=== PATIENT | female | born 1950 | race Hispanic/Latino ===

== ENCOUNTER 2018-10-27 09:47 | Inpatient (IN) | payer OTHER ==
--- NOTE | 2018-10-27 10:13 | Emergency Department Report ---
Stated Complaint: PALPATATION Time Seen by Provider: 10/27/18 10:11 - HPI History of Present Illness: PMH SVT HTN HPLD DM NO SD NO CVA NO CIG FOLLOWED BY [facility] FAST HR SINCE YESTERDAY NO CP NO SOB MILD SWELLING LEGS TAKING [facility] CALLED [facility] AND THEY SENT HER HERE TO MAIN ED MSE screening note: Focused history and physical exam performed. Due to findings the following was ordered: ED Disposition for MSE Condition: Stable
[2018-10-27 10:35] LABS: Basophils # (Auto) 0.1 K/mm3 (0.0-0.1); Basophils % (Auto) 1.1 % (0.0-1.8); Eosinophils # (Auto) 0.2 K/mm3 (0.0-0.4); Eosinophils % (Auto) 1.6 % (0.0-4.3); Hematocrit 41.6 % (30.3-42.9); Lymphocytes # (Auto) 2.4 K/mm3 (1.2-5.4); Mean Corpuscular HGB Conc 34 % (30-34); Mean Corpuscular Volume 82 fl (79-97); Monocytes # (Auto) 0.9 K/mm3 (0.0-0.8); Platelet Count 378 K/mm3 (140-440); Red Blood Count 5.07 M/mm3 (3.65-5.03); Red Cell Distribution Width 14.2 % (13.2-15.2)
[2018-10-27] MEDS ORDERED: CARDIZEM IV ONE (10:41)
[2018-10-27] MEDS ORDERED: NACL 0.9% 1000 ML 1,000 ML IV ONE (10:42)
--- NOTE | 2018-10-27 10:43 | Emergency Department Report ---
HPI - General Chief Complaint: Arrhythmia/Palpitations Time Seen by Provider: 10/27/18 10:11 - HPI HPI: Room 18 The patient is a 68-year-old female presenting with chief complaint of tachycardia. The patient states yesterday her fitbit registered an elevated heart rate that she thought was malfunctioning. Today when she checked her blood pressure heart rate again was noted to be elevated at 149. Patient states to much hot flash and felt clammy for approximately 15 minutes the symptoms resolved. Patient denied ever having chest pain shortness breath nausea or vomiting. Patient now is asymptomatic despite a persistently elevated heart rate. The patient states in June 2018 she had her first episode of palpitations when she was found to be in atrial flutter requiring cardioversion Location: Cardiovascular system Duration: [See above] Quality: Palpitations Severity: Moderate Modifying factors: [see above] Context: [see above] Mode of transportation: [not driving] ED Past Medical Hx - Past Medical History Hx Hypertension: Yes Hx Diabetes: Yes Additional medical history: Atrial flutter status post cardioversion June 2018 - Surgical History Past Surgical History?: No Additional Surgical History: Removal of cyst in December or January 2018;Hysterectomy 1983; Facial reconstructive surgery in 1968; - Family History Family history: no significant - Social History Smoking Status: Former Smoker (nodes) Substance Use Type: None - Medications Home Medications: Home Medications Medication Instructions Recorded Confirmed Last Taken Type Amiodarone [Cordarone 200 MG TAB] 200 mg PO QDAY #30 tablet 07/13/18 Unknown Rx Amlodipine Besylate [Norvasc] 5 mg PO QDAY #30 tablet 07/13/18 Unknown Rx Apixaban [Eliquis] 5 mg PO Q12HR #60 tablet 07/13/18 Unknown Rx Fluticasone [Flonase] 1 spray NS QDAY #1 bottle 07/13/18 Unknown Rx Loratadine [Claritin] 5 mg PO QDAY tablet 07/13/18 Unknown Rx Losartan [Cozaar] 50 mg PO QDAY #30 tablet 07/13/18 Unknown Rx Pravastatin [Pravachol] 20 mg PO QHS #30 tablet 07/13/18 Unknown Rx dilTIAZem CD [Cardizem CD] 180 mg PO QDAY capsule 07/13/18 Unknown Rx hydroCHLOROthiazide [HCTZ] 12.5 mg PO QDAY #30 capsule 07/13/18 Unknown Rx metFORMIN [Glucophage] 500 mg PO QAM #60 tablet 07/13/18 Unknown Rx metFORMIN [Glucophage] 500 mg PO QDDIAB tablet 07/13/18 Unknown Rx ED Review of Systems ROS: Stated complaint: PALPATATION Other details as noted in HPI Physical Exam - Physical Exam Vital Signs: Vital Signs 10/27/18 10:10 Temperature 97.8 F Pulse Rate 146 H Respiratory 16 Rate Blood Pressure 124/71 O2 Sat by Pulse 95 Oximetry ED Course Vital Signs 10/27/18 10:10 Temperature 97.8 F Pulse Rate 146 H Respiratory 16 Rate Blood Pressure 124/71 O2 Sat by Pulse 95 Oximetry - Consultations Consultation #1: 10/27/18 10:45 Cardiology paged 10/27/18 11:[address] Soler- requests amiodarone be initiated. Aware of current medications being administered ED Medical Decision Making - Lab Data Result diagrams: 10/27/18 10:20 10/27/18 10:20 Laboratory Tests 10/27/18 10/27/18 10/27/18 10:20 10:20 10:20 WBC 9.6 RBC 5.07 H Hgb 14.0 Hct 41.6 MCV 82 MCH 28 MCHC 34 RDW 14.2 Plt Count 378 Lymph % (Auto) 25.0 [facility] % (Auto) 9.0 H Eos % (Auto) 1.6 Baso % (Auto) 1.1 Lymph # 2.4 [facility] # 0.9 H Eos # 0.2 Baso # 0.1 Seg Neutrophils % 63.3 Seg Neutrophils # 6.1 PT 14.6 INR 1.07 APTT 36.3 Sodium 141 Potassium 4.0 Chloride 103.6 Carbon Dioxide 27 Anion Gap 14 BUN 9 Creatinine 0.6 L Estimated GFR > 60 BUN/Creatinine Ratio 15 Glucose 151 H Calcium 9.0 Magnesium Total Bilirubin 0.30 AST 17 ALT 29 Alkaline Phosphatase 96 Troponin T < 0.010 Total Protein 7.2 Albumin 4.3 Albumin/Globulin Ratio 1.5 TSH Free T4 10/27/18 10/27/18 10:37 10:37 WBC RBC Hgb Hct MCV MCH MCHC RDW Plt Count Lymph % (Auto) [facility] % (Auto) Eos % (Auto) Baso % (Auto) Lymph # [facility] # Eos # Baso # Seg Neutrophils % Seg Neutrophils # PT INR APTT Sodium Potassium Chloride Carbon Dioxide Anion Gap BUN Creatinine Estimated GFR BUN/Creatinine Ratio Glucose Calcium Magnesium 2.20 Total Bilirubin AST ALT Alkaline Phosphatase Troponin T Total Protein Albumin Albumin/Globulin Ratio TSH 2.510 Free T4 1.18 - EKG Data -: EKG Interpreted by Me Rate: tachycardia - EKG Data Interpretation: unchanged when compared t - Radiology Data Radiology results: image reviewed (chest x-ray) interpreted by me: Chest x-ray-no focal infiltrate, no pneumothorax - Differential Diagnosis atria flutter Critical care attestation.: If time is entered above; I have spent that time in minutes in the direct care of this critically ill patient, excluding procedure time. ED Disposition Clinical Impression: Atrial flutter Disposition: [id number] OP ADMIT IP TO THIS HOSP Is pt being admited?: Yes Does the pt Need Aspirin: Yes Condition: Fair Time of Disposition: 11:14 (hospitalist paged (Dr Rodriguez))
[2018-10-27 10:46] LABS: INR 1.07 (0.87-1.13)
[2018-10-27 10:47] LABS: Partial Thromboplastin Time 36.3 Sec. (24.2-36.6)
[2018-10-27 10:57] LABS: Alanine Aminotransferase 29 units/L (7-56); Albumin 4.3 g/dL (3.9-5); BUN/Creatinine Ratio 15; Blood Urea Nitrogen 9 mg/dL (7-17); Hemolysis Index 11
[2018-10-27] MEDS ORDERED: CARDIZEM 100 MG in D5W 80 ML IV SCH (11:00)
[2018-10-27] MEDS ORDERED: CORDARONE 150 MG in D5W 97 ML IV ONE (11:12)
--- NOTE | 2018-10-27 11:12 | XRay Report ---
PORTABLE CHEST INDICATION: Dysrhythmia. COMPARISON: 07/11/2018 FINDINGS: Portable, frontal chest radiograph demonstrated stable cardiomediastinal silhouette with slightly prominent hilar/infrahilar markings, more so on the right. No pleural effusions or CHF. Right hemidiaphragm approximately 2 cm higher than the left. Mild aortic knob calcifications. EKG leads. Intact bones. CONCLUSION: No acute chest process or significant interval change, as described. Thank you for the opportunity to participate in this patient's care.
[2018-10-27 11:14] LABS: Free T4 (Free Thyroxine) 1.18 ng/dL (0.76-1.46)
[2018-10-27] MEDS ORDERED: ZOFRAN IV PRN (11:25)
[2018-10-27] MEDS ORDERED: PROVENTIL IH PRN (11:25)
[2018-10-27] MEDS ORDERED: SODIUM CHLORIDE FLUSH SYRINGE 10 ML IV PRN (11:25)
--- NOTE | 2018-10-27 11:27 | History and Physical Report ---
History of Present Illness Chief complaint: My heart is beating fast History of present illness: 68 YO Female with HTN, DM, Obesity, Atrial Flutter/Fib S/P Cardioversion 07/11 presents to ED for evaluation. Pt states that she has experienced chest palpitations and feeling like her heart was racing over the past 2 days with persistent symptoms over the same time frame. Pt also reports feeling diaphoretic for 15 minutes today which prompted visit to ED. Pt transported to [facility] ED via private vehicle. Pt seen and evaluated in ED and found to have persistent Atrial Fib/Flutter. Cardiology consulted in ED. Pt denies fever, chills, CP, NVD, Trauma, BRBPR, Unintentional weight loss, night sweats, productive cough, prolonged travel/immobility, individual/family history of DVT/PE/Blood Clotting Disorders. Pt admitted to telemetry. Prior visit on 07/11/18 reviewed. All listed medication reconciled at time of admission. Past History Past Medical History: atrial fib, diabetes, hypertension Past Surgical History: hysterectomy, Other (Facial surgery) Social history: single. denies: smoking, alcohol abuse, prescription drug abuse Family history: hypertension Medications and Allergies Allergies Allergy/AdvReac Type Severity Reaction Status Date / Time Penicillins AdvReac Hives Verified 10/27/18 10:45 Home Medications Medication Instructions Recorded Confirmed Last Taken Type Apixaban [Eliquis] 5 mg PO Q12HR #60 tablet 07/13/18 10/27/18 Unknown Rx Loratadine [Claritin] 5 mg PO QDAY tablet 07/13/18 10/27/18 Unknown Rx Losartan [Cozaar] 50 mg PO QDAY #30 tablet 07/13/18 10/27/18 Unknown Rx Pravastatin [Pravachol] 20 mg PO QHS #30 tablet 07/13/18 10/27/18 Unknown Rx dilTIAZem CD [Cardizem CD] 180 mg PO QDAY capsule 07/13/18 10/27/18 Unknown Rx hydroCHLOROthiazide [HCTZ] 12.5 mg PO QDAY #30 capsule 07/13/18 10/27/18 Unknown Rx metFORMIN [Glucophage] 500 mg PO QDDIAB tablet 07/13/18 10/27/18 Unknown Rx Active Meds: Active Medications Acetaminophen (Tylenol) 650 mg PO Q4H PRN PRN Reason: Pain MILD(1-3)/Fever >100.5/VELEZ Albuterol (Proventil) 2.5 mg IH Q3HRT PRN PRN Reason: Shortness Of Breath Diltiazem HCl 100 mg/ Dextrose 100 mls @ 5 mls/hr IV DIRECT PIPPA; Protocol Sodium Chloride (Nacl 0.9% 1000 Ml) 1,000 mls @ 999 mls/hr IV ONCE ONE Stop: 10/27/18 11:42 Last Admin: 10/27/18 10:59 Dose: 999 mls/hr Documented by: Amiodarone HCl 900 mg/ (Dextrose) 500 mls @ 33.333 mls/hr IV DIRECT PIPPA; Protocol Ondansetron HCl (Zofran) 4 mg IV Q8H PRN PRN Reason: Nausea And Vomiting Sodium Chloride (Sodium Chloride Flush Syringe 10 Ml) 10 ml IV BID PIPPA Sodium Chloride (Sodium Chloride Flush Syringe 10 Ml) 10 ml IV PRN PRN PRN Reason: LINE FLUSH Review of Systems Constitutional: no weight loss, no weight gain, no fever, no chills Ears, nose, mouth and throat: no ear pain, no ear discharge, no tinnitis, no decreased hearing, no nose pain Breasts: no change in shape, no swelling, no mass Cardiovascular: palpitations, no syncope, no lightheadedness, no paroxysmal nocturnal dyspnea, no decreased exercise tolerance Respiratory: no cough, no cough with sputum, no excessive sputum, no hemoptysis Gastrointestinal: no abdominal pain, no nausea, no vomiting, no diarrhea, no co nstipation Genitourinary Female: no pelvic pain, no flank pain, no menorrhagia, no dysuria, no urinary frequency, no urgency Rectal: no pain, no incontinence, no bleeding Musculoskeletal: no neck stiffness, no neck pain, no shooting arm pain, no arm numbness/tingling, no low back pain, no shooting leg pain Integumentary: no rash, no pruritis, no redness, no sores, no wounds Neurological: no weakness, no parathesias, no numbness, no tingling, no syncope Psychiatric: no anxiety, no memory loss, no change in sleep habits, no sleep disturbances, no insomnia, no hypersomnia Endocrine: no cold intolerance, no heat intolerance, no polyphagia, no excessive thirst, no polydipsia Hematologic/Lymphatic: no easy bruising, no easy bleeding, no lymphadenopathy Allergic/Immunologic: no urticaria, no allergic rhinitis, no wheezing, no persistent infections Exam - Constitutional Vitals: Temp Pulse Resp BP Pulse Ox 98.2 F 147 H 16 130/68 96 10/27/18 10:42 10/27/18 10:58 10/27/18 10:43 10/27/18 10:58 10/27/18 10:43 General appearance: Present: mild distress - EENT Eyes: Present: PERRL ENT: hearing intact, clear oral mucosa - Neck Neck: Present: supple, normal ROM - Respiratory Respiratory effort: normal Respiratory: bilateral: CTA - Cardiovascular Rhythm: irregularly irregular Heart Sounds: Present: S1 & S2. Absent: rub, click - Extremities Extremities: pulses symmetrical, No edema Peripheral Pulses: within normal limits - Abdominal General gastrointestinal: Present: soft, non-tender, non-distended, normal bowel sounds Female genitourinary: Present: normal - Integumentary Integumentary: Present: clear, warm, dry - Musculoskeletal Musculoskeletal: gait normal, strength equal bilaterally - Psychiatric Psychiatric: appropriate mood/affect, intact judgment & insight - Neurologic Neurologic: CNII-XII intact, moves all extremities Results - Labs CBC & Chem 7: 10/27/18 10:20 10/27/18 10:20 Labs: Abnormal lab results 10/27/18 10/27/18 Range/Units 10:20 10:20 RBC 5.07 H (3.65-5.03) M/mm3 [facility] % (Auto) 9.0 H (0.0-7.3) % [facility] # 0.9 H (0.0-0.8) K/mm3 Creatinine 0.6 L (0.7-1.2) mg/dL Glucose 151 H (65-100) mg/dL Assessment and Plan - Patient Problems (1) Atrial flutter Current Visit: Yes Status: Acute Qualifiers: Qualified Code(s): I48.92 - Unspecified atrial flutter Plan to address problem: Cardiology consulted in ED, Amiodarone drip for medical cardioversion and rate control, admit to telemetry, continue therapeutic anticoagulation with eliquis, (2) Diabetes Current Visit: Yes Status: Acute Plan to address problem: ADA diet, insulin, accu check (3) HLD (hyperlipidemia) Current Visit: No Status: Chronic Qualifiers: Hyperlipidemia type: mixed hyperlipidemia Qualified Code(s): E78.2 - Mixed hyperlipidemia Plan to address problem: low cholesterol diet, statin therapy as indicated. (4) HTN (hypertension) Current Visit: No Status: Chronic Qualifiers: Hypertension type: essential hypertension Qualified Code(s): I10 - Essential (primary) hypertension Plan to address problem: monitor bp q shift, supportive care, (5) Obesity hypoventilation syndrome Current Visit: Yes Status: Acute Plan to address problem: supplemental oxygen, nebulizer therapy, NIPPV as clinically indicated, balanced diet/increased physical activity at discharge. (6) DVT prophylaxis Current Visit: No Status: Acute Plan to address problem: SCD to BLE while in bed.
[2018-10-27] MEDS ORDERED: D50W (25GM) Syringe IV PRN (11:32)
[2018-10-27] MEDS: CORDARONE 900 MG in D5W 482 ML IV SCH ×2 (12:20→19:06)
[2018-10-27 14:38] LABS: Bacteria,Urine 1+ /HPF (Negative); Bilirubin,Urine NEG (Negative); Blood,Urine NEG (Negative); Color,Urine Colorless (Yellow); Protein,Urine <15 mg/dL mg/dL (Negative); Urobilinogen,Urine < 2.0 mg/dL (<2.0)
[2018-10-27] MEDS ORDERED: LOPRESSOR IV PRN (17:05)
--- NOTE | 2018-10-27 17:14 | Consultation ---
History of Present Illness Consult date: 10/27/18 Consult reason: atrial fibrillation History of present illness: 68-year-old woman with a history of hypertension and paroxysmal atrial flutter. 3 months ago, she was hospitalized for symptomatic atrial flutter, ultimately required JHOAN guided cardioversion. Yesterday, she noted a recurrence of palpitations and some dizziness, presented to the emergency room where she was again found with atrial flutter with 2:1 AV conduction, heart rate in the 130s. The only possible provoking event was her indigestion of 2 cups of coffee. She is admitted for further management of symptomatic atrial flutter. Blood pressure is stable. It'll be recalled that on the prior presentation left ventricular ejection fraction within normal limits of normal, 45-50%. Past History Past Medical History: atrial fib, diabetes, hypertension Past Surgical History: hysterectomy, Other (Facial surgery) Social history: single. denies: smoking, alcohol abuse, prescription drug abuse Family history: hypertension Medications and Allergies Allergies Allergy/AdvReac Type Severity Reaction Status Date / Time Penicillins AdvReac Hives Verified 10/27/18 10:45 Home Medications Medication Instructions Recorded Confirmed Last Taken Type Apixaban [Eliquis] 5 mg PO Q12HR #60 tablet 07/13/18 10/27/18 Unknown Rx Loratadine [Claritin] 5 mg PO QDAY tablet 07/13/18 10/27/18 Unknown Rx Losartan [Cozaar] 50 mg PO QDAY #30 tablet 07/13/18 10/27/18 Unknown Rx Pravastatin [Pravachol] 20 mg PO QHS #30 tablet 07/13/18 10/27/18 Unknown Rx dilTIAZem CD [Cardizem CD] 180 mg PO QDAY capsule 07/13/18 10/27/18 Unknown Rx hydroCHLOROthiazide [HCTZ] 12.5 mg PO QDAY #30 capsule 07/13/18 10/27/18 Unknown Rx metFORMIN [Glucophage] 500 mg PO QDDIAB tablet 07/13/18 10/27/18 Unknown Rx Active Meds: Active Medications Acetaminophen (Tylenol) 650 mg PO Q4H PRN PRN Reason: Pain MILD(1-3)/Fever >100.5/VELEZ Albuterol (Proventil) 2.5 mg IH Q3HRT PRN PRN Reason: Shortness Of Breath Amiodarone HCl (Cordarone) 200 mg PO BID PIPPA Apixaban (Eliquis) 5 mg PO Q12HR PIPPA; Protocol Dextrose (D50w (25gm) Syringe) 50 ml IV PRN PRN PRN Reason: Hypoglycemia Digoxin (Lanoxin) 0.25 mg IV Q6HR [facility] Stop: 10/28/18 00:01 Digoxin (Lanoxin) 0.25 mg PO DAILY@1700 PIPPA Diltiazem HCl (Cardizem) 60 mg PO Q6HR [facility] Fluticasone Propionate (Flonase) 50 mcg NS QDAY [facility] Hydrochlorothiazide (Hctz) 12.5 mg PO QDAY [facility] Amiodarone HCl 900 mg/ (Dextrose) 500 mls @ 33.333 mls/hr IV DIRECT PIPPA; Protocol Last Admin: 10/27/18 12:20 Dose: 1 mg/min, 33.333 mls/hr Documented by: Loratadine (Claritin) 5 mg PO QDAY [facility] Losartan Potassium (Cozaar) 50 mg PO QDAY [facility] Metoprolol Tartrate (Lopressor) 5 mg IV Q6HR PRN PRN Reason: HR>130 Ondansetron HCl (Zofran) 4 mg IV Q8H PRN PRN Reason: Nausea And Vomiting Pravastatin Sodium (Pravachol) 20 mg PO QHS [facility] Sodium Chloride (Sodium Chloride Flush Syringe 10 Ml) 10 ml IV BID [facility] Sodium Chloride (Sodium Chloride Flush Syringe 10 Ml) 10 ml IV PRN PRN PRN Reason: LINE FLUSH Review of Systems Cardiovascular: palpitations, rapid/irregular heart beat, lightheadedness, no chest pain, no orthopnea, no edema, no syncope, no shortness of breath Physical Examination Vital Signs Temp Pulse Resp BP Pulse Ox 97.8 F 146 H 16 124/71 95 10/27/18 10:10 10/27/18 10:10 10/27/18 10:10 10/27/18 10:10 10/27/18 10:10 General appearance: no acute distress HEENT: Positive: PERRL Neck: Positive: neck supple Cardiac: Positive: irregularly irregular Lungs: Positive: clear to auscultation Neuro: Positive: Grossly Intact Abdomen: Positive: Soft Female genitourinary: deferred Skin: Positive: Clear Extremities: Absent: edema Results 10/27/18 10:20 10/27/18 10:20 Cardiac Enzymes 10/27/18 Range/Units 10:20 AST 17 (5-40) units/L Coagulation 10/27/18 Range/Units 10:20 PT 14.6 (12.2-14.9) Sec. INR 1.07 (0.87-1.13) APTT 36.3 (24.2-36.6) Sec. CBC 10/27/18 Range/Units 10:20 WBC 9.6 (4.5-11.0) K/mm3 RBC 5.07 H (3.65-5.03) M/mm3 Hgb 14.0 (10.1-14.3) gm/dl Hct 41.6 (30.3-42.9) % Plt Count 378 (140-440) K/mm3 Lymph # 2.4 (1.2-5.4) K/mm3 [facility] # 0.9 H (0.0-0.8) K/mm3 Eos # 0.2 (0.0-0.4) K/mm3 Baso # 0.1 (0.0-0.1) K/mm3 Comprehensive Metabolic Panel 10/27/18 Range/Units 10:20 Sodium 141 (137-145) mmol/L Potassium 4.0 (3.6-5.0) mmol/L Chloride 103.6 (98-107) mmol/L Carbon Dioxide 27 (22-30) mmol/L BUN 9 (7-17) mg/dL Creatinine 0.6 L (0.7-1.2) mg/dL Glucose 151 H (65-100) mg/dL Calcium 9.0 (8.4-10.2) mg/dL AST 17 (5-40) units/L ALT 29 (7-56) units/L Alkaline Phosphatase 96 (35-129) units/L Total Protein 7.2 (6.3-8.2) g/dL Albumin 4.3 (3.9-5) g/dL EKG interpretations - Telemetry EKG Rhythm: Atrial Fibrillation Assessment and Plan - Patient Problems (1) Atrial flutter Current Visit: Yes Status: Acute Qualifiers: Qualified Code(s): I48.92 - Unspecified atrial flutter Plan to address problem: For recurrent atrial flutter, we will start amiodarone, Cardizem and digoxin. We'll continue oral anticoagulation withEliquis. If she remains in flutter at >48 hours on adequate medical therapy, we will consider another JHOAN guided cardioversion. Long-term, she will be considered a candidate for atrial flutter ablation.
[2018-10-27] MEDS: CARDIZEM PO SCH (18:07)
[2018-10-27] MEDS: LANOXIN IV SCH (18:07)
[2018-10-27] MEDS: PRAVACHOL PO SCH (21:05)
[2018-10-27] MEDS: ELIQUIS PO SCH (21:05)
[2018-10-27] MEDS: SODIUM CHLORIDE FLUSH SYRINGE 10 ML IV SCH (21:05)
[2018-10-27] MEDS: TYLENOL PO PRN (21:10)
[2018-10-27] MEDS ORDERED: LOVENOX SUB-Q SCH (22:00)
[2018-10-28] MEDS: CARDIZEM PO SCH ×4 (00:25→18:50)
[2018-10-28] MEDS: LANOXIN IV SCH (00:30)
[2018-10-28 06:31] LABS: BUN/Creatinine Ratio 13; Blood Urea Nitrogen 8 mg/dL (7-17); Calcium 8.3 mg/dL (8.4-10.2); Hemolysis Index 12
[2018-10-28] MEDS ORDERED: NORVASC PO SCH (10:00)
[2018-10-28] MEDS ORDERED: CARDIZEM CD PO SCH (10:00)
[2018-10-28] MEDS: CLARITIN PO SCH (10:53)
[2018-10-28] MEDS: COZAAR PO SCH (10:53)
[2018-10-28] MEDS: FLONASE NS SCH (10:53)
[2018-10-28] MEDS: ELIQUIS PO SCH ×2 (10:54→21:15)
[2018-10-28] MEDS: HCTZ PO SCH (10:54)
[2018-10-28] MEDS: LANOXIN PO SCH ×2 (10:55→17:54)
[2018-10-28] MEDS: CORDARONE PO SCH ×2 (10:56→21:16)
[2018-10-28] MEDS: SODIUM CHLORIDE FLUSH SYRINGE 10 ML IV SCH ×2 (10:56→21:16)
--- NOTE | 2018-10-28 13:02 | Progress Note ---
Assessment and Plan Assessment and plan: Atrial flutter. Cardiology started the patient on amiodarone, Cardizem and digoxin. Continue oral anticoagulation with Eliquis. The patient does not cardiovert with medical therapy, cardiology to consider JHOAN guided cardioversion. Diabetes mellitus type 2. Continue Accu-Cheks and sliding scale. ADA diet. Hyperlipidemia. Continue statin therapy. Hypertension. Continue antihypertensive medications. OHS/SHANNON. Continue supplemental oxygen and BiPAP as clinically indicated. History Interval history: No new issues overnight. No new episodes of palpitation. Hospitalist Physical - Constitutional Vitals: Temp Pulse Resp BP Pulse Ox 98.5 F 80 18 119/55 94 10/28/18 10:00 10/28/18 10:55 10/28/18 09:59 10/28/18 09:59 10/28/18 09:59 General appearance: Present: no acute distress - EENT Eyes: Present: PERRL, EOM intact ENT: hearing intact, clear oral mucosa, dentition normal - Neck Neck: Present: supple, normal ROM - Respiratory Respiratory effort: normal Respiratory: bilateral: CTA - Cardiovascular Rhythm: regular Heart Sounds: Present: S1 & S2. Absent: gallop, rub - Extremities Extremities: no ischemia, No edema, Full ROM - Abdominal General gastrointestinal: soft, non-tender, non-distended, normal bowel sounds - Integumentary Integumentary: Present: clear, warm, dry - Neurologic Neurologic: CNII-XII intact, moves all extremities Results - Labs CBC & Chem 7: 10/27/18 10:20 10/28/18 05:37 Labs: Laboratory Last Values WBC 9.6 K/mm3 (4.5-11.0) 10/27/18 10:20 RBC 5.07 M/mm3 (3.65-5.03) H 10/27/18 10:20 Hgb 14.0 gm/dl (10.1-14.3) 10/27/18 10:20 Hct 41.6 % (30.3-42.9) 10/27/18 10:20 MCV 82 fl (79-97) 10/27/18 10:20 MCH 28 pg (28-32) 10/27/18 10:20 MCHC 34 % (30-34) 10/27/18 10:20 RDW 14.2 % (13.2-15.2) 10/27/18 10:20 Plt Count 378 K/mm3 (140-440) 10/27/18 10:20 Lymph % (Auto) 25.0 % (13.4-35.0) 10/27/18 10:20 [place] % (Auto) 9.0 % (0.0-7.3) H 10/27/18 10:20 Eos % (Auto) 1.6 % (0.0-4.3) 10/27/18 10:20 Baso % (Auto) 1.1 % (0.0-1.8) 10/27/18 10:20 Lymph # 2.4 K/mm3 (1.2-5.4) 10/27/18 10:20 [place] # 0.9 K/mm3 (0.0-0.8) H 10/27/18 10:20 Eos # 0.2 K/mm3 (0.0-0.4) 10/27/18 10:20 Baso # 0.1 K/mm3 (0.0-0.1) 10/27/18 10:20 Seg Neutrophils % 63.3 % (40.0-70.0) 10/27/18 10:20 Seg Neutrophils # 6.1 K/mm3 (1.8-7.7) 10/27/18 10:20 PT 14.6 Sec. (12.2-14.9) 10/27/18 10:20 INR 1.07 (0.87-1.13) 10/27/18 10:20 APTT 36.3 Sec. (24.2-36.6) 10/27/18 10:20 Sodium 141 mmol/L (137-145) 10/28/18 05:37 Potassium 3.9 mmol/L (3.6-5.0) 10/28/18 05:37 Chloride 104.4 mmol/L (98-107) 10/28/18 05:37 Carbon Dioxide 25 mmol/L (22-30) 10/28/18 05:37 Anion Gap 16 mmol/L 10/28/18 05:37 BUN 8 mg/dL (7-17) 10/28/18 05:37 Creatinine 0.6 mg/dL (0.7-1.2) L 10/28/18 05:37 Estimated GFR > 60 ml/min 10/28/18 05:37 BUN/Creatinine Ratio 13 % 10/28/18 05:37 Glucose 159 mg/dL (65-100) H 10/28/18 05:37 POC Glucose 115 (70-105) H 10/28/18 11:51 Calcium 8.3 mg/dL (8.4-10.2) L 10/28/18 05:37 Magnesium 2.20 mg/dL (1.7-2.3) 10/27/18 10:37 Total Bilirubin 0.30 mg/dL (0.1-1.2) 10/27/18 10:20 AST 17 units/L (5-40) 10/27/18 10:20 ALT 29 units/L (7-56) 10/27/18 10:20 Alkaline Phosphatase 96 units/L (35-129) 10/27/18 10:20 Troponin T < 0.010 ng/mL (0.00-0.029) 10/27/18 13:17 NT-Pro-B Natriuret Pep 3777 pg/mL (0-900) H 10/27/18 10:37 Total Protein 7.2 g/dL (6.3-8.2) 10/27/18 10:20 Albumin 4.3 g/dL (3.9-5) 10/27/18 10:20 Albumin/Globulin Ratio 1.5 % 10/27/18 10:20 TSH 2.510 mlU/mL (0.270-4.200) 10/27/18 10:37 Free T4 1.18 ng/dL (0.76-1.46) 10/27/18 10:37 Urine Color Colorless (Yellow) 10/27/18 13:58 Urine Turbidity Clear (Clear) 10/27/18 13:58 Urine pH 7.0 (5.0-7.0) 10/27/18 13:58 Ur Specific [place] 1.003 (1.003-1.030) 10/27/18 13:58 Urine Protein <15 mg/dl mg/dL (Negative) 10/27/18 13:58 Urine Glucose (UA) Neg mg/dL (Negative) 10/27/18 13:58 Urine Ketones Neg mg/dL (Negative) 10/27/18 13:58 Urine Blood Neg (Negative) 10/27/18 13:58 Urine Nitrite Neg (Negative) 10/27/18 13:58 Urine Bilirubin Neg (Negative) 10/27/18 13:58 Urine Urobilinogen < 2.0 mg/dL (<2.0) 10/27/18 13:58 Ur Leukocyte Esterase Tr (Negative) 10/27/18 13:58 Urine WBC (Auto) 5.0 /HPF (0.0-6.0) 10/27/18 13:58 Urine RBC (Auto) 4.0 /HPF (0.0-6.0) 10/27/18 13:58 U Epithel Cells (Auto) < 1.0 /HPF (0-13.0) 10/27/18 13:58 Urine Bacteria (Auto) 1+ /HPF (Negative) 10/27/18 13:58 Active Medications - Current Medications Current Medications: Generic Name Dose Route Start Last Admin Trade Name Freq PRN Reason Stop Dose Admin Acetaminophen 650 mg 10/27/18 11:25 10/27/18 21:10 Tylenol PO 650 mg Q4H PRN Administration Pain MILD(1-3)/Fever >100.5/VELEZ Albuterol 2.5 mg 10/27/18 11:25 Proventil IH Q3HRT PRN Shortness Of Breath Amiodarone HCl 200 mg 10/28/18 10:00 10/28/18 10:56 Cordarone PO 200 mg BID PIPPA Administration Apixaban 5 mg 10/27/18 22:00 10/28/18 10:54 Eliquis PO 5 mg Q12HR PIPPA Administration Protocol Dextrose 50 ml 10/27/18 11:32 D50w (25gm) Syringe IV PRN PRN Hypoglycemia Digoxin 0.25 mg 10/28/18 10:00 10/28/18 10:55 Lanoxin PO 0.25 mg DAILY@1700 PIPPA Administration Diltiazem HCl 60 mg 10/27/18 18:00 10/28/18 06:27 Cardizem PO 60 mg Q6HR PIPPA Administration Fluticasone Propionate 50 mcg 10/28/18 10:00 Flonase NS QDAY PIPPA Hydrochlorothiazide 12.5 mg 10/28/18 10:00 10/28/18 10:54 Hctz PO 12.5 mg QDAY PIPPA Administration Amiodarone HCl 900 mg/ 500 mls @ 33.333 mls/hr 10/27/18 12:00 10/27/18 19:06 Dextrose IV 0.5 mg/min DIRECT PIPPA 16.667 mls/hr Administration Protocol 1 MG/MIN Loratadine 5 mg 10/28/18 10:00 10/28/18 10:53 Claritin PO 5 mg QDAY PIPPA Administration Losartan Potassium 50 mg 10/28/18 10:00 10/28/18 10:53 Cozaar PO 50 mg QDAY PIPPA Administration Metoprolol Tartrate 5 mg 10/27/18 17:05 Lopressor IV Q6HR PRN HR>130 Ondansetron HCl 4 mg 10/27/18 11:25 Zofran IV Q8H PRN Nausea And Vomiting Pravastatin Sodium 20 mg 10/27/18 22:00 10/27/18 21:05 Pravachol PO 20 mg QHS PIPPA Administration Sodium Chloride 10 ml 10/27/18 22:00 10/28/18 10:56 Sodium Chloride Flush Syringe 10 Ml IV 10 ml BID PIPPA Administration Sodium Chloride 10 ml 10/27/18 11:25 Sodium Chloride Flush Syringe 10 Ml IV PRN PRN LINE FLUSH
[2018-10-28] MEDS: TYLENOL PO PRN (15:51)
[2018-10-28] MEDS: PRAVACHOL PO SCH (21:15)
[2018-10-29] MEDS: CARDIZEM PO SCH ×4 (01:29→18:15)
[2018-10-29] MEDS: COZAAR PO SCH (10:45)
[2018-10-29] MEDS: HCTZ PO SCH (10:45)
[2018-10-29] MEDS: CLARITIN PO SCH (10:46)
[2018-10-29] MEDS: CORDARONE PO SCH ×2 (10:47→22:09)
[2018-10-29] MEDS: ELIQUIS PO SCH ×2 (10:47→22:09)
[2018-10-29] MEDS: FLONASE NS SCH (10:47)
[2018-10-29] MEDS: SODIUM CHLORIDE FLUSH SYRINGE 10 ML IV SCH ×2 (10:48→22:09)
--- NOTE | 2018-10-29 11:44 | Progress Note ---
Assessment and Plan Assessment and plan: Atrial flutter. Cardiology started the patient on amiodarone, Cardizem and digoxin. Continue oral anticoagulation with Eliquis. If, the patient does not cardiovert with medical therapy, cardiology to consider JHOAN guided cardioversion. Diabetes mellitus type 2. Continue Accu-Cheks and sliding scale. ADA diet. Hyperlipidemia. Continue statin therapy. Hypertension. Continue antihypertensive medications. OHS/SHANNON. Continue supplemental oxygen and BiPAP as clinically indicated. History Interval history: No new issues overnight. No new episodes of palpitation. Hospitalist Physical - Constitutional Vitals: Temp Pulse Resp BP Pulse Ox 97.5 F L 76 20 125/56 95 10/29/18 00:09 10/29/18 10:45 10/29/18 00:09 10/29/18 10:45 10/29/18 00:09 General appearance: Present: no acute distress - EENT Eyes: Present: PERRL, EOM intact ENT: hearing intact, clear oral mucosa, dentition normal - Neck Neck: Present: supple, normal ROM - Respiratory Respiratory effort: normal Respiratory: bilateral: CTA - Cardiovascular Rhythm: regular Heart Sounds: Present: S1 & S2. Absent: gallop, rub - Extremities Extremities: no ischemia, No edema, Full ROM - Abdominal General gastrointestinal: soft, non-tender, non-distended, normal bowel sounds - Integumentary Integumentary: Present: clear, warm, dry - Neurologic Neurologic: CNII-XII intact, moves all extremities Results - Labs CBC & Chem 7: 10/27/18 10:20 10/28/18 05:37 Labs: Laboratory Last Values WBC 9.6 K/mm3 (4.5-11.0) 10/27/18 10:20 RBC 5.07 M/mm3 (3.65-5.03) H 10/27/18 10:20 Hgb 14.0 gm/dl (10.1-14.3) 10/27/18 10:20 Hct 41.6 % (30.3-42.9) 10/27/18 10:20 MCV 82 fl (79-97) 10/27/18 10:20 MCH 28 pg (28-32) 10/27/18 10:20 MCHC 34 % (30-34) 10/27/18 10:20 RDW 14.2 % (13.2-15.2) 10/27/18 10:20 Plt Count 378 K/mm3 (140-440) 10/27/18 10:20 Lymph % (Auto) 25.0 % (13.4-35.0) 10/27/18 10:20 [place] % (Auto) 9.0 % (0.0-7.3) H 10/27/18 10:20 Eos % (Auto) 1.6 % (0.0-4.3) 10/27/18 10:20 Baso % (Auto) 1.1 % (0.0-1.8) 10/27/18 10:20 Lymph # 2.4 K/mm3 (1.2-5.4) 10/27/18 10:20 [place] # 0.9 K/mm3 (0.0-0.8) H 10/27/18 10:20 Eos # 0.2 K/mm3 (0.0-0.4) 10/27/18 10:20 Baso # 0.1 K/mm3 (0.0-0.1) 10/27/18 10:20 Seg Neutrophils % 63.3 % (40.0-70.0) 10/27/18 10:20 Seg Neutrophils # 6.1 K/mm3 (1.8-7.7) 10/27/18 10:20 PT 14.6 Sec. (12.2-14.9) 10/27/18 10:20 INR 1.07 (0.87-1.13) 10/27/18 10:20 APTT 36.3 Sec. (24.2-36.6) 10/27/18 10:20 Sodium 141 mmol/L (137-145) 10/28/18 05:37 Potassium 3.9 mmol/L (3.6-5.0) 10/28/18 05:37 Chloride 104.4 mmol/L (98-107) 10/28/18 05:37 Carbon Dioxide 25 mmol/L (22-30) 10/28/18 05:37 Anion Gap 16 mmol/L 10/28/18 05:37 BUN 8 mg/dL (7-17) 10/28/18 05:37 Creatinine 0.6 mg/dL (0.7-1.2) L 10/28/18 05:37 Estimated GFR > 60 ml/min 10/28/18 05:37 BUN/Creatinine Ratio 13 % 10/28/18 05:37 Glucose 159 mg/dL (65-100) H 10/28/18 05:37 POC Glucose 125 (70-105) H 10/29/18 08:32 Calcium 8.3 mg/dL (8.4-10.2) L 10/28/18 05:37 Magnesium 2.20 mg/dL (1.7-2.3) 10/27/18 10:37 Total Bilirubin 0.30 mg/dL (0.1-1.2) 10/27/18 10:20 AST 17 units/L (5-40) 10/27/18 10:20 ALT 29 units/L (7-56) 10/27/18 10:20 Alkaline Phosphatase 96 units/L (35-129) 10/27/18 10:20 Troponin T < 0.010 ng/mL (0.00-0.029) 10/27/18 13:17 NT-Pro-B Natriuret Pep 3777 pg/mL (0-900) H 10/27/18 10:37 Total Protein 7.2 g/dL (6.3-8.2) 10/27/18 10:20 Albumin 4.3 g/dL (3.9-5) 10/27/18 10:20 Albumin/Globulin Ratio 1.5 % 10/27/18 10:20 TSH 2.510 mlU/mL (0.270-4.200) 10/27/18 10:37 Free T4 1.18 ng/dL (0.76-1.46) 10/27/18 10:37 Urine Color Colorless (Yellow) 10/27/18 13:58 Urine Turbidity Clear (Clear) 10/27/18 13:58 Urine pH 7.0 (5.0-7.0) 10/27/18 13:58 Ur Specific [place] 1.003 (1.003-1.030) 10/27/18 13:58 Urine Protein <15 mg/dl mg/dL (Negative) 10/27/18 13:58 Urine Glucose (UA) Neg mg/dL (Negative) 10/27/18 13:58 Urine Ketones Neg mg/dL (Negative) 10/27/18 13:58 Urine Blood Neg (Negative) 10/27/18 13:58 Urine Nitrite Neg (Negative) 10/27/18 13:58 Urine Bilirubin Neg (Negative) 10/27/18 13:58 Urine Urobilinogen < 2.0 mg/dL (<2.0) 10/27/18 13:58 Ur Leukocyte Esterase Tr (Negative) 10/27/18 13:58 Urine WBC (Auto) 5.0 /HPF (0.0-6.0) 10/27/18 13:58 Urine RBC (Auto) 4.0 /HPF (0.0-6.0) 10/27/18 13:58 U Epithel Cells (Auto) < 1.0 /HPF (0-13.0) 10/27/18 13:58 Urine Bacteria (Auto) 1+ /HPF (Negative) 10/27/18 13:58 Active Medications - Current Medications Current Medications: Generic Name Dose Route Start Last Admin Trade Name Freq PRN Reason Stop Dose Admin Acetaminophen 650 mg 10/27/18 11:25 10/28/18 15:51 Tylenol PO 650 mg Q4H PRN Administration Pain MILD(1-3)/Fever >100.5/VELEZ Albuterol 2.5 mg 10/27/18 11:25 Proventil IH Q3HRT PRN Shortness Of Breath Amiodarone HCl 200 mg 10/28/18 10:00 10/29/18 10:47 Cordarone PO 200 mg BID PIPPA Administration Apixaban 5 mg 10/27/18 22:00 10/29/18 10:47 Eliquis PO 5 mg Q12HR PIPPA Administration Protocol Dextrose 50 ml 10/27/18 11:32 D50w (25gm) Syringe IV PRN PRN Hypoglycemia Digoxin 0.25 mg 10/28/18 10:00 10/28/18 17:54 Lanoxin PO Not Given DAILY@1700 PIPPA Diltiazem HCl 60 mg 10/27/18 18:00 10/29/18 06:06 Cardizem PO 60 mg Q6HR PIPPA Administration Fluticasone Propionate 50 mcg 10/28/18 10:00 10/29/18 10:47 Flonase NS 50 mcg QDAY PIPPA Administration Hydrochlorothiazide 12.5 mg 10/28/18 10:00 10/29/18 10:45 Hctz PO 12.5 mg QDAY PIPPA Administration Amiodarone HCl 900 mg/ 500 mls @ 33.333 mls/hr 10/27/18 12:00 10/27/18 19:06 Dextrose IV 0.5 mg/min DIRECT PIPPA 16.667 mls/hr Administration Protocol 1 MG/MIN Loratadine 5 mg 10/28/18 10:00 10/29/18 10:46 Claritin PO 5 mg QDAY PIPPA Administration Losartan Potassium 50 mg 10/28/18 10:00 10/29/18 10:45 Cozaar PO 50 mg QDAY PIPPA Administration Metoprolol Tartrate 5 mg 10/27/18 17:05 Lopressor IV Q6HR PRN HR>130 Ondansetron HCl 4 mg 10/27/18 11:25 Zofran IV Q8H PRN Nausea And Vomiting Pravastatin Sodium 20 mg 10/27/18 22:00 10/28/18 21:15 Pravachol PO 20 mg QHS PIPPA Administration Sodium Chloride 10 ml 10/27/18 22:00 10/29/18 10:48 Sodium Chloride Flush Syringe 10 Ml IV 10 ml BID PIPPA Administration Sodium Chloride 10 ml 10/27/18 11:25 Sodium Chloride Flush Syringe 10 Ml IV PRN PRN LINE FLUSH
--- NOTE | 2018-10-29 12:54 | Progress Note ---
Assessment and Plan 1. Paroxysmal Atrial flutter. ( Currently in sinus rhythm 75 bpm ) 2. Essential hypertension 3. Type 2 diabetes mellitus 4. Obesity Plan. Patient is currently stable and is off IV amiodarone.Started on oral Amiodarone. For lead EKG check today Subjective Date of service: 10/29/18 Interval history: No cardiac symptoms. Objective Vital Signs Temp Pulse Pulse Resp BP BP Pulse Ox 10/29/18 12:39 78 118/58 10/29/18 12:36 72 93 10/29/18 12:35 70 118/58 94 10/29/18 10:45 76 125/56 10/29/18 10:43 125/56 10/29/18 09:25 94 10/29/18 00:30 86 10/29/18 00:09 97.5 F L 68 20 100/36 95 10/28/18 22:25 71 18 95 10/28/18 22:00 98.3 F 86 20 112/55 95 10/28/18 20:46 92 10/28/18 19:46 98.3 F 20 112/55 10/28/18 19:37 69 10/28/18 15:38 98.4 F 82 106/53 - Physical Examination General: Appears Well, Other (mildly obese) HEENT: Positive: PERRL Neck: Positive: neck supple. Negative: JVD/HJR Cardiac: Positive: Regular Rate, S1/S2, PMI, Laterally Displaced Lungs: Positive: clear to auscultation, No Wheeze, Rales, Rhonchi Neuro: Positive: Grossly Intact Abdomen: Positive: Unremarkable, Soft Skin: Positive: Clear Extremities: Absent: edema - Telemetry EKG Rhythm: Sinus Rhythm
[2018-10-29] MEDS: LANOXIN PO SCH (18:15)
[2018-10-29] MEDS: PRAVACHOL PO SCH (22:09)
[2018-10-30] MEDS: CARDIZEM PO SCH ×3 (00:19→15:13)
[2018-10-30 04:31] VITALS: BP 111/52
[2018-10-30] MEDS: HCTZ PO SCH (09:20)
[2018-10-30] MEDS: COZAAR PO SCH (09:20)
[2018-10-30] MEDS: ELIQUIS PO SCH (09:20)
[2018-10-30] MEDS: CLARITIN PO SCH (09:20)
[2018-10-30] MEDS: CORDARONE PO SCH (09:21)
[2018-10-30] MEDS: SODIUM CHLORIDE FLUSH SYRINGE 10 ML IV SCH (09:23)
--- NOTE | 2018-10-30 10:09 | Discharge Summary ---
Providers - Providers Date of Admission: 10/27/18 11:25 Date of discharge: 10/30/18 Attending physician: KRYSTIN DAVIS 10/27/18 11:16 Consult to Physician [CONS] Urgent Comment: DR ESTEBAN FELDER W/ DR GORMAN @1110 Consulting Provider: SONYA ORELLANA Physician Instructions: Reason For Exam: tachycardia Primary care physician: JN MEZA Hospitalization Reason for admission: atrial flutter Condition: Fair Hospital course: 68-year-old woman with a history of hypertension and paroxysmal atrial flutter. 3 months ago, she was hospitalized for symptomatic atrial flutter, ultimately required JHOAN guided cardioversion. On the day prior to admission, she noted a recurrence of palpitations with some dizziness and thus presented to the emergency room where she was again found to have atrial flutter with 2:1 AV conduction, heart rate in the 130s. The only possible provoking event was her indigestion of 2 cups of coffee. She was admitted for further management of symptomatic atrial flutter. Cardiology saw the patient in consultation and started the patient on amiodarone, Cardizem and digoxin. The patient was continued on her oral anticoagulation of eliquis. Plans were for JHOAN guided cardioversion if the patient did not convert to normal sinus rhythm with medications. However, patient did in fact convert to normal sinus rhythm. Therefore, patient is felt to have received maximal hospital benefit and will be discharged home. Long-term, she will be considered a candidate for atrial flutter ablation. Dedicated discharge time 32 minutes. Disposition: - TO HOME OR SELFCARE Time spent for discharge: 32 - Discharge Diagnoses (1) Atrial flutter Status: Acute Qualifiers: Qualified Code(s): I48.92 - Unspecified atrial flutter (2) HLD (hyperlipidemia) Status: Chronic Qualifiers: Hyperlipidemia type: mixed hyperlipidemia Qualified Code(s): E78.2 - Mixed hyperlipidemia (3) HTN (hypertension) Status: Chronic Qualifiers: Hypertension type: essential hypertension Qualified Code(s): I10 - Essential (primary) hypertension (4) T2DM (type 2 diabetes mellitus) Status: Chronic Qualifiers: Diabetes mellitus correction insulin use: without termite treater helper use Core Measure Documentation - Palliative Care Palliative Care/ Comfort Measures: Not Applicable - Core Measures Any of the following diagnoses?: none Exam - Constitutional Vitals: Temp Pulse Resp BP Pulse Ox 98.0 F 63 20 111/52 94 10/30/18 03:29 10/30/18 05:27 10/30/18 03:29 10/30/18 05:27 10/30/18 03:29 General appearance: Present: no acute distress, well-nourished - EENT Eyes: Present: PERRL ENT: hearing intact, clear oral mucosa - Neck Neck: Present: supple, normal ROM - Respiratory Respiratory effort: normal Respiratory: bilateral: CTA - Cardiovascular Heart Sounds: Present: S1 & S2. Absent: rub, click - Extremities Extremities: pulses symmetrical, No edema Peripheral Pulses: within normal limits - Abdominal General gastrointestinal: Present: soft, non-tender, non-distended, normal bowel sounds Female genitourinary: Present: normal - Integumentary Integumentary: Present: clear, warm, dry - Musculoskeletal Musculoskeletal: gait normal, strength equal bilaterally - Psychiatric Psychiatric: appropriate mood/affect, intact judgment & insight - Neurologic Neurologic: CNII-XII intact, moves all extremities Plan Activity: no restrictions Weight Bearing Status: Full Weight Bearing Diet: diabetic Follow up with: PRIMARY CARE, [Referring] - 3-5 Days SONYA ORELLANA MD [Staff Physician] - 7 Days Prescriptions: dilTIAZem [Cardizem] 60 mg PO Q6HR #120 tablet Loratadine [Claritin] 5 mg PO QDAY #30 tablet Amiodarone [Cordarone 200 MG TAB] 200 mg PO BID #60 tablet Losartan [Cozaar] 50 mg PO QDAY #30 tablet Apixaban [Eliquis] 5 mg PO Q12HR #60 tablet metFORMIN [Glucophage] 500 mg PO QDDIAB #60 tablet hydroCHLOROthiazide [HCTZ] 12.5 mg PO QDAY #30 capsule Digoxin [Lanoxin] 0.25 mg PO DAILY@1700 #30 tablet Pravastatin [Pravachol] 20 mg PO QHS #30 tablet
--- NOTE | 2018-10-30 14:27 | Progress Note ---
Assessment and Plan - Patient Problems (1) Atrial flutter Current Visit: Yes Status: Acute Qualifiers: Qualified Code(s): I48.92 - Unspecified atrial flutter Plan to address problem: Stable for cardiac discharge on medical therapy to include amiodarone 200 mg daily. Subjective Date of service: 10/30/18 Interval history: Patient is comfortable, no acute distress. She has since returned to his stable normal sinus rhythm on medical therapy including amiodarone. Objective Vital Signs Temp Pulse Pulse Resp BP BP Pulse Ox 10/30/18 10:00 88 10/30/18 05:27 63 111/52 10/30/18 03:29 98.0 F 63 20 111/52 94 10/30/18 00:19 73 113/60 10/30/18 00:11 98.0 F 71 20 113/60 97 10/29/18 22:10 73 18 92 10/29/18 20:27 98.2 F 73 20 114/55 92 10/29/18 19:34 78 10/29/18 18:15 69 110/61 10/29/18 16:53 98.1 F 69 18 110/61 98 - Physical Examination General: Appears Well HEENT: Positive: PERRL Neck: Positive: neck supple. Negative: JVD/HJR Cardiac: Positive: Reg Rate and Rhythm Lungs: Positive: clear to auscultation Neuro: Positive: Grossly Intact Abdomen: Positive: Unremarkable, Soft Skin: Positive: Clear Extremities: Absent: edema
[2018-10-30] MEDS: FLONASE NS SCH (15:13)
== END 2018-10-30 18:26 | disposition home or self-care (01) | DRG 309 ==
LOC: ED 09:47 → 4A 11:25
PROVIDERS: ADMIT Internal Medicine; ATTEND Hospitalist
DX: I48.92 Unspecified atrial flutter (principal); E66.2 Morbid (severe) obesity with alveolar hypoventilation; E11.9 Type 2 diabetes mellitus without complications; I10 Essential (primary) hypertension; E78.2 Mixed hyperlipidemia; Z68.33 Body mass index [BMI] 33.0-33.9, adult; Z82.49 Family history of ischemic heart disease and other diseases of the circulatory system; Z90.710 Acquired absence of both cervix and uterus; Z88.0 Allergy status to penicillin; Z79.01 Long term (current) use of anticoagulants; Z79.899 Other long term (current) drug therapy; Z79.84 Long term (current) use of oral hypoglycemic drugs; Z87.891 Personal history of nicotine dependence
CPT/HCPCS: 36415; 71045; 80048; 80053; 81001; 82962; 83735; 83880; 84439; 84443; 84484; 85025; 85610; 85730; 93005; 93010; 96361; 96374; 96375; G0378; A9270-GY; J0282; J1160; J7030; J7060